=== PATIENT | female | born 1970 | race Caucasian/White ===

== ENCOUNTER 2021-01-07 16:58 | Outpatient (CLI) | payer OTHER | END 2021-01-07 16:59 | disposition home or self-care (01) | LOC: CSHRAD 16:58 | PROVIDERS: ATTEND Psychiatry & Neurology Neurology | DX: J44.9 Chronic obstructive pulmonary disease, unspecified (principal); M54.9 Dorsalgia, unspecified; M47.814 Spondylosis without myelopathy or radiculopathy, thoracic region; M47.812 Spondylosis without myelopathy or radiculopathy, cervical region | CPT/HCPCS: 71046; 72040; 72070 ==